=== PATIENT | female | born 1940 | race Caucasian/White ===

== ENCOUNTER 2023-05-15 08:46 | Day surgery (SDC) | payer MEDICARE ==
[~2023-05-15] VITALS: Ht 170.2 cm; Wt 98.6 kg
[~2023-05-15 08:46] MED LIST: OMEP-84 PO
[2023-05-15 09:05] VITALS: BP 139/69; PULSE 85; RESP 14; TEMP 98.2; O2SAT 97
[2023-05-15] MEDS ORDERED: LEVO100T9 PO (09:08)
[2023-05-15] MEDS ORDERED: DAPA10TA PO (09:08)
[2023-05-15] MEDS ORDERED: FURO20TA4 PO (09:08)
[2023-05-15] MEDS ORDERED: LAN0.125T PO (09:08)
[2023-05-15] MEDS ORDERED: FLO0.1T PO (09:08)
[2023-05-15] MEDS ORDERED: LOSA25TA41 PO (09:08)
[2023-05-15] MEDS ORDERED: APIX5TAB3 PO (09:08)
[2023-05-15] MEDS ORDERED: ATOR-2 PO (09:08)
[2023-05-15] MEDS ORDERED: MIDO5TAB4 PO (09:08)
[2023-05-15] MEDS ORDERED: ASPI-611 PO (09:09)
[2023-05-15] MEDS ORDERED: POTA-188 PO (09:09)
[2023-05-15] MEDS ORDERED: albumin 25% 100mL bottle x 1 IV PRN (09:10)
[2023-05-15] MEDS ORDERED: LIDOcaine 1% 30ml preserv. free vial SQ PRN (09:15)
[2023-05-15 09:25] VITALS: BP 150/45; PULSE 99; RESP 14; O2SAT 97
[2023-05-15 09:32] VITALS: BP 150/45; PULSE 99; RESP 14; O2SAT 97
[2023-05-15 09:47] VITALS: BP 111/68; PULSE 80; RESP 15; O2SAT 96
[2023-05-15 10:02] VITALS: BP 99/61; PULSE 80; RESP 15; O2SAT 98
[2023-05-15 10:17] VITALS: BP 102/65; PULSE 79; RESP 15; O2SAT 99
== END 2023-05-15 10:50 | disposition home or self-care (01) ==
LOC: SSTAY O 08:46
PROVIDERS: ATTEND Radiology Diagnostic Radiology
DX: J90 Pleural effusion, not elsewhere classified (principal); I11.0 Hypertensive heart disease with heart failure; I50.9 Heart failure, unspecified; J81.1 Chronic pulmonary edema; E03.9 Hypothyroidism, unspecified; I48.91 Unspecified atrial fibrillation; E11.9 Type 2 diabetes mellitus without complications; E78.5 Hyperlipidemia, unspecified; G47.33 Obstructive sleep apnea (adult) (pediatric); F10.10 Alcohol abuse, uncomplicated; Z96.659 Presence of unspecified artificial knee joint; Z88.2 Allergy status to sulfonamides; Z79.82 Long term (current) use of aspirin; Z79.899 Other long term (current) drug therapy
CPT/HCPCS: 32555; C1729; J3490

== ENCOUNTER 2023-06-18 06:47 | Day surgery (SDC) | payer MEDICARE ==
[~2023-06-18] VITALS: Ht 167.6 cm; Wt 95.3 kg
[~2023-06-18 06:47] MED LIST changes: +APIX5TAB3 PO; +ASPI-611 PO; +ATOR-2 PO; +DAPA10TA PO; +FLO0.1T PO; +FURO20TA4 PO; +LAN0.125T PO; +LEVO100T9 PO; +MIDO5TAB4 PO; +POTA-188 PO
[2023-06-18 07:00] VITALS: BP 151/78; PULSE 105; RESP 16; TEMP 98.1; O2SAT 94
[2023-06-18 07:30] VITALS: RESP 16; O2SAT 94
[2023-06-18] MEDS ORDERED: albumin 25% 100mL bottle x 1 IV PRN (07:30)
[2023-06-18 09:12] VITALS: BP 134/98; PULSE 100; RESP 16; O2SAT 94
[2023-06-18 09:15] VITALS: BP 147/72; PULSE 91; RESP 16; O2SAT 95
[2023-06-18 09:30] VITALS: BP 123/76; PULSE 89; RESP 16; O2SAT 94
[2023-06-18 09:45] VITALS: BP 126/67; PULSE 71; RESP 16; O2SAT 96
== END 2023-06-18 10:00 | disposition home or self-care (01) ==
LOC: SSTAY O 06:47
PROVIDERS: ATTEND Radiology Vascular & Interventional Radiology
DX: J90 Pleural effusion, not elsewhere classified (principal); I11.0 Hypertensive heart disease with heart failure; I50.9 Heart failure, unspecified; J96.91 Respiratory failure, unspecified with hypoxia; E03.9 Hypothyroidism, unspecified; I48.91 Unspecified atrial fibrillation; E11.9 Type 2 diabetes mellitus without complications; E78.5 Hyperlipidemia, unspecified; F10.10 Alcohol abuse, uncomplicated; G47.33 Obstructive sleep apnea (adult) (pediatric); Z96.653 Presence of artificial knee joint, bilateral; Z79.899 Other long term (current) drug therapy; Z79.82 Long term (current) use of aspirin; Z79.01 Long term (current) use of anticoagulants
CPT/HCPCS: 32555; C1729; J3490

== ENCOUNTER 2023-07-26 06:55 | Day surgery (SDC) | payer MEDICARE ==
[~2023-07-26] VITALS: Ht 165.1 cm; Wt 92.7 kg
[2023-07-26] MEDS ORDERED: DEXA0.5T PO (07:18)
[2023-07-26] MEDS ORDERED: SOMA0.2D SQ (07:18)
[2023-07-26 07:30] VITALS: BP 139/86; PULSE 119; RESP 18; TEMP 97.7; O2SAT 93
[2023-07-26] MEDS ORDERED: albumin 25% 100mL bottle x 1 IV PRN (07:30)
[2023-07-26 08:40] VITALS: BP 146/78; PULSE 92; RESP 18
[2023-07-26 09:00] VITALS: BP 133/86; PULSE 91; RESP 18; O2SAT 96
[2023-07-26 09:15] VITALS: BP 139/86; PULSE 77; RESP 18; O2SAT 97
[2023-07-26 09:30] VITALS: BP 144/91; PULSE 86; RESP 18; O2SAT 97
[2023-07-26 09:40] VITALS: BP 146/78; PULSE 92; RESP 18; O2SAT 96
== END 2023-07-26 09:35 | disposition home or self-care (01) ==
LOC: SSTAY O 06:55
PROVIDERS: ATTEND Radiology Vascular & Interventional Radiology
DX: J90 Pleural effusion, not elsewhere classified (principal); I11.0 Hypertensive heart disease with heart failure; I50.9 Heart failure, unspecified; J96.91 Respiratory failure, unspecified with hypoxia; E03.9 Hypothyroidism, unspecified; I48.91 Unspecified atrial fibrillation; E11.9 Type 2 diabetes mellitus without complications; E78.5 Hyperlipidemia, unspecified; F10.20 Alcohol dependence, uncomplicated; J81.1 Chronic pulmonary edema; G47.33 Obstructive sleep apnea (adult) (pediatric); Z96.653 Presence of artificial knee joint, bilateral; Z98.890 Other specified postprocedural states; Z79.82 Long term (current) use of aspirin; Z79.899 Other long term (current) drug therapy
CPT/HCPCS: 32555; C1729; J3490

== ENCOUNTER 2023-08-02 06:54 | Day surgery (SDC) | payer MEDICARE ==
[~2023-08-02] VITALS: Ht 165.1 cm; Wt 91.7 kg
[~2023-08-02 06:54] MED LIST changes: +DEXA0.5T PO; +SOMA0.2D SQ
[2023-08-02] MEDS ORDERED: albumin 25% 100mL bottle x 1 IV PRN (07:10)
[2023-08-02 07:20] VITALS: BP 142/92; PULSE 89; RESP 18; TEMP 98.3; O2SAT 96
[2023-08-02 10:10] VITALS: BP 150/86; PULSE 96; RESP 18; O2SAT 98
[2023-08-02 10:30] VITALS: BP 130/95; PULSE 67; RESP 14; O2SAT 98
[2023-08-02 10:45] VITALS: BP 131/90; PULSE 90; RESP 12; O2SAT 96
[2023-08-02 11:00] VITALS: BP 138/76; PULSE 83; RESP 14; O2SAT 97
[2023-08-02 11:10] VITALS: BP 147/84; PULSE 85; RESP 14; O2SAT 97
== END 2023-08-02 11:10 | disposition home or self-care (01) ==
LOC: SSTAY O 06:54
PROVIDERS: ATTEND Radiology Diagnostic Radiology
DX: J90 Pleural effusion, not elsewhere classified (principal); I11.0 Hypertensive heart disease with heart failure; I50.9 Heart failure, unspecified; J96.91 Respiratory failure, unspecified with hypoxia; J81.1 Chronic pulmonary edema; E03.9 Hypothyroidism, unspecified; I48.91 Unspecified atrial fibrillation; E11.9 Type 2 diabetes mellitus without complications; E78.5 Hyperlipidemia, unspecified; F10.10 Alcohol abuse, uncomplicated; G47.33 Obstructive sleep apnea (adult) (pediatric); Z98.890 Other specified postprocedural states; Z96.653 Presence of artificial knee joint, bilateral; Z88.2 Allergy status to sulfonamides; Z79.899 Other long term (current) drug therapy; Z79.82 Long term (current) use of aspirin; Z79.01 Long term (current) use of anticoagulants
CPT/HCPCS: 32555; C1729; J3490

== ENCOUNTER 2023-08-16 05:52 | Day surgery (SDC) | payer MEDICARE ==
[~2023-08-16] VITALS: Ht 165.1 cm; Wt 92.6 kg
[2023-08-16] VITALS (7 sets, daily range): BP systolic 134–183; BP diastolic 69–98; PULSE 71–85; RESP 18–20; TEMP 99.4; O2SAT 93–99
[2023-08-16] MEDS ORDERED: MIDO10TA PO (06:30)
[2023-08-16] MEDS ORDERED: LEVO88TA7 PO (06:30)
== END 2023-08-16 09:15 | disposition home health service (06) ==
LOC: SSTAY O 05:52
PROVIDERS: ATTEND Radiology Diagnostic Radiology
DX: J90 Pleural effusion, not elsewhere classified (principal); R06.02 Shortness of breath; I11.0 Hypertensive heart disease with heart failure; I50.9 Heart failure, unspecified; E11.9 Type 2 diabetes mellitus without complications; E03.9 Hypothyroidism, unspecified; E78.5 Hyperlipidemia, unspecified; I48.91 Unspecified atrial fibrillation; G47.33 Obstructive sleep apnea (adult) (pediatric); Z79.890 Hormone replacement therapy; Z79.01 Long term (current) use of anticoagulants; Z96.653 Presence of artificial knee joint, bilateral
CPT/HCPCS: 32555; C1729

== ENCOUNTER 2023-08-23 06:57 | Day surgery (SDC) | payer MEDICARE ==
[~2023-08-23] VITALS: Ht 165.1 cm; Wt 91.4 kg
[~2023-08-23 06:57] MED LIST changes: -LEVO100T9 PO; +LEVO88TA7 PO; +MIDO10TA PO; -MIDO5TAB4 PO; -OMEP-84 PO
[2023-08-23 07:26] VITALS: BP 144/66; PULSE 78; RESP 14; TEMP 98.2; O2SAT 97
--- NOTE | 2023-08-23 08:56 | NUR ---
Procedure cancelled due to no fluid
--- NOTE | 2023-08-23 09:05 | NUR ---
dc'd to home via [facility]
== END 2023-08-23 09:00 | disposition home or self-care (01) ==
LOC: SSTAY O 06:57
PROVIDERS: ATTEND Radiology Vascular & Interventional Radiology
DX: J90 Pleural effusion, not elsewhere classified (principal); Z53.8 Procedure and treatment not carried out for other reasons; I11.0 Hypertensive heart disease with heart failure; I50.9 Heart failure, unspecified; J96.91 Respiratory failure, unspecified with hypoxia; J81.1 Chronic pulmonary edema; E03.9 Hypothyroidism, unspecified; I48.91 Unspecified atrial fibrillation; E11.9 Type 2 diabetes mellitus without complications; E78.5 Hyperlipidemia, unspecified; F10.10 Alcohol abuse, uncomplicated; Z96.653 Presence of artificial knee joint, bilateral; Z98.890 Other specified postprocedural states
CPT/HCPCS: 76604

== ENCOUNTER 2023-08-30 06:57 | Day surgery (SDC) | payer MEDICARE ==
[~2023-08-30] VITALS: Ht 165.1 cm; Wt 91.6 kg
[2023-08-30 07:16] VITALS: BP 133/94; PULSE 80; RESP 16; TEMP 98.6; O2SAT 96
[2023-08-30] MEDS ORDERED: albumin 25% 100mL bottle x 1 IV PRN (07:35)
[2023-08-30 09:25] VITALS: BP 139/84; PULSE 89; RESP 16; O2SAT 96
[2023-08-30 09:30] VITALS: BP 128/78; PULSE 72; RESP 16; O2SAT 94
[2023-08-30 09:45] VITALS: BP 122/78; PULSE 106; RESP 14; O2SAT 94
[2023-08-30 10:00] VITALS: BP 132/69; PULSE 106; RESP 12; O2SAT 96
[2023-08-30 10:15] VITALS: BP 143/75; PULSE 75; RESP 16; O2SAT 95
== END 2023-08-30 10:30 | disposition home or self-care (01) ==
LOC: SSTAY O 06:57
PROVIDERS: ATTEND Radiology Vascular & Interventional Radiology
DX: J90 Pleural effusion, not elsewhere classified (principal); I11.0 Hypertensive heart disease with heart failure; I50.9 Heart failure, unspecified; J96.91 Respiratory failure, unspecified with hypoxia; J81.1 Chronic pulmonary edema; E03.9 Hypothyroidism, unspecified; I48.91 Unspecified atrial fibrillation; E11.9 Type 2 diabetes mellitus without complications; E78.5 Hyperlipidemia, unspecified; F10.10 Alcohol abuse, uncomplicated; G47.33 Obstructive sleep apnea (adult) (pediatric); Z96.659 Presence of unspecified artificial knee joint; Z88.2 Allergy status to sulfonamides; Z79.899 Other long term (current) drug therapy; Z79.82 Long term (current) use of aspirin; Z79.01 Long term (current) use of anticoagulants
CPT/HCPCS: 32555; C1729

== ENCOUNTER 2023-09-06 07:04 | Day surgery (SDC) | payer MEDICARE ==
[~2023-09-06] VITALS: Ht 165.1 cm; Wt 91.9 kg
[2023-09-06 07:30] VITALS: BP 159/99; PULSE 86; RESP 16; RESP 20; TEMP 97.8; O2SAT 94
[2023-09-06] MEDS ORDERED: albumin 25% 100mL bottle x 1 IV PRN (07:30)
[2023-09-06 09:05] VITALS: BP 119/53; PULSE 86; RESP 20; O2SAT 97
[2023-09-06 09:10] VITALS: BP 119/53; PULSE 86; RESP 20; O2SAT 97
[2023-09-06 09:15] VITALS: BP 148/86; PULSE 91; RESP 18; O2SAT 95
[2023-09-06 09:25] VITALS: BP 148/78; PULSE 89; RESP 18; O2SAT 97
== END 2023-09-06 09:09 | disposition home or self-care (01) ==
LOC: SSTAY O 07:04
PROVIDERS: ATTEND Radiology Diagnostic Radiology
DX: J90 Pleural effusion, not elsewhere classified (principal); I11.0 Hypertensive heart disease with heart failure; I50.9 Heart failure, unspecified; J96.91 Respiratory failure, unspecified with hypoxia; J81.1 Chronic pulmonary edema; E03.9 Hypothyroidism, unspecified; I48.91 Unspecified atrial fibrillation; E11.9 Type 2 diabetes mellitus without complications; E78.5 Hyperlipidemia, unspecified; F10.10 Alcohol abuse, uncomplicated; G47.33 Obstructive sleep apnea (adult) (pediatric); Z96.653 Presence of artificial knee joint, bilateral; Z79.899 Other long term (current) drug therapy
CPT/HCPCS: 32555; C1729

== ENCOUNTER 2023-09-18 06:30 | Day surgery (SDC) | payer MEDICARE ==
[~2023-09-18] VITALS: Ht 165.1 cm; Wt 92.4 kg
[2023-09-18 06:50] VITALS: BP 133/108; PULSE 87; RESP 20; TEMP 97.7; O2SAT 94; O2SAT 98
[2023-09-18] MEDS ORDERED: albumin 25% 100mL bottle x 1 IV PRN (06:50)
[2023-09-18 08:45] VITALS: BP 177/107; PULSE 85; RESP 20; O2SAT 96
[2023-09-18 08:54] VITALS: BP 199/90; PULSE 87; RESP 20; O2SAT 96
[2023-09-18 09:00] VITALS: BP 161/92; PULSE 79; RESP 18; O2SAT 98
[2023-09-18 09:15] VITALS: BP 157/92; PULSE 66; RESP 18; O2SAT 97
== END 2023-09-18 09:27 | disposition home or self-care (01) ==
LOC: SSTAY O 06:30
PROVIDERS: ATTEND Radiology Vascular & Interventional Radiology
DX: J90 Pleural effusion, not elsewhere classified (principal); I11.0 Hypertensive heart disease with heart failure; I50.9 Heart failure, unspecified; E11.9 Type 2 diabetes mellitus without complications; J96.91 Respiratory failure, unspecified with hypoxia; J81.1 Chronic pulmonary edema; E03.9 Hypothyroidism, unspecified; I48.91 Unspecified atrial fibrillation; E78.5 Hyperlipidemia, unspecified; F10.10 Alcohol abuse, uncomplicated; G47.33 Obstructive sleep apnea (adult) (pediatric); Z98.890 Other specified postprocedural states; Z88.2 Allergy status to sulfonamides; Z96.653 Presence of artificial knee joint, bilateral; Z79.899 Other long term (current) drug therapy
CPT/HCPCS: 32555; C1729

== ENCOUNTER 2023-09-28 06:23 | Day surgery (SDC) | payer MEDICARE ==
[~2023-09-28] VITALS: Ht 160 cm; Wt 91.4 kg
[2023-09-28 07:01] VITALS: BP 152/92; PULSE 74; RESP 16; TEMP 98.3; O2SAT 94
[2023-09-28 07:30] VITALS: RESP 16; O2SAT 95
[2023-09-28 08:46] VITALS: BP 156/125; PULSE 95; RESP 16; O2SAT 95
[2023-09-28 09:00] VITALS: BP 162/100; PULSE 93; RESP 16; O2SAT 95
[2023-09-28 09:15] VITALS: BP 153/97; PULSE 84; RESP 16; O2SAT 93
[2023-09-28 09:30] VITALS: BP 157/95; PULSE 83; RESP 16; O2SAT 95
== END 2023-09-28 09:40 | disposition home or self-care (01) ==
LOC: SSTAY O 06:23
PROVIDERS: ATTEND Radiology Vascular & Interventional Radiology
DX: J90 Pleural effusion, not elsewhere classified (principal); I11.0 Hypertensive heart disease with heart failure; I50.9 Heart failure, unspecified; E11.9 Type 2 diabetes mellitus without complications; E03.9 Hypothyroidism, unspecified; E78.5 Hyperlipidemia, unspecified; I48.91 Unspecified atrial fibrillation; G47.33 Obstructive sleep apnea (adult) (pediatric); Z79.01 Long term (current) use of anticoagulants; Z79.82 Long term (current) use of aspirin; Z79.890 Hormone replacement therapy; Z79.899 Other long term (current) drug therapy; Z96.653 Presence of artificial knee joint, bilateral; Z88.2 Allergy status to sulfonamides
CPT/HCPCS: 32555; C1729

== ENCOUNTER 2023-10-09 06:54 | Day surgery (SDC) | payer MEDICARE ==
[2023-10-09] VITALS (7 sets, daily range): BP systolic 129–155; BP diastolic 80–101; PULSE 70–98; RESP 15–16; TEMP 98.2; O2SAT 96–97
[~2023-10-09] VITALS: Ht 165.1 cm; Wt 92.3 kg
== END 2023-10-09 10:38 | disposition home or self-care (01) ==
LOC: SSTAY O 06:54
PROVIDERS: ATTEND Radiology Vascular & Interventional Radiology
DX: J90 Pleural effusion, not elsewhere classified (principal); I11.0 Hypertensive heart disease with heart failure; I50.9 Heart failure, unspecified; J96.91 Respiratory failure, unspecified with hypoxia; J81.1 Chronic pulmonary edema; E03.9 Hypothyroidism, unspecified; I48.91 Unspecified atrial fibrillation; E11.9 Type 2 diabetes mellitus without complications; E78.5 Hyperlipidemia, unspecified; F10.10 Alcohol abuse, uncomplicated; G47.33 Obstructive sleep apnea (adult) (pediatric); Z98.890 Other specified postprocedural states; Z96.653 Presence of artificial knee joint, bilateral; Z79.899 Other long term (current) drug therapy; Z88.2 Allergy status to sulfonamides
CPT/HCPCS: 32555; C1729

== ENCOUNTER 2023-10-18 06:52 | Day surgery (SDC) | payer MEDICARE ==
[~2023-10-18] VITALS: Ht 165.1 cm; Wt 91.4 kg
[2023-10-18] VITALS (7 sets, daily range): BP systolic 132–156; BP diastolic 77–100; PULSE 68–88; RESP 16; TEMP 97.9; O2SAT 86–98
== END 2023-10-18 09:57 | disposition home or self-care (01) ==
LOC: SSTAY O 06:52
PROVIDERS: ATTEND Radiology Vascular & Interventional Radiology
DX: J90 Pleural effusion, not elsewhere classified (principal); E11.9 Type 2 diabetes mellitus without complications; I11.0 Hypertensive heart disease with heart failure; I50.9 Heart failure, unspecified; J96.91 Respiratory failure, unspecified with hypoxia; J81.1 Chronic pulmonary edema; E03.9 Hypothyroidism, unspecified; I48.91 Unspecified atrial fibrillation; E78.5 Hyperlipidemia, unspecified; F10.10 Alcohol abuse, uncomplicated; G47.33 Obstructive sleep apnea (adult) (pediatric); Z79.899 Other long term (current) drug therapy; Z98.890 Other specified postprocedural states; Z96.653 Presence of artificial knee joint, bilateral
CPT/HCPCS: 32555; C1729

== ENCOUNTER 2023-11-08 06:34 | Day surgery (SDC) | payer MEDICARE ==
[~2023-11-08] VITALS: Ht 165.1 cm; Wt 92.3 kg
[2023-11-08] MEDS ORDERED: albumin 25% 100mL bottle x 1 IV PRN (06:55)
[2023-11-08 07:01] VITALS: BP 138/89; PULSE 71; RESP 15; TEMP 98.1; O2SAT 95
[2023-11-08 07:15] VITALS: BP 138/89; PULSE 71; RESP 16; TEMP 98.1; O2SAT 95
[2023-11-08 08:29] VITALS: BP 154/41; PULSE 68; RESP 15; O2SAT 97
[2023-11-08 08:45] VITALS: BP 150/97; PULSE 89; RESP 15; O2SAT 98
[2023-11-08 09:00] VITALS: BP 158/76; PULSE 70; RESP 14; RESP 15; O2SAT 97; O2SAT 98
[2023-11-08 09:15] VITALS: BP 159/80; PULSE 72; RESP 15; O2SAT 98
== END 2023-11-08 09:25 | disposition home or self-care (01) ==
LOC: SSTAY O 06:34
PROVIDERS: ATTEND Radiology Vascular & Interventional Radiology
DX: J90 Pleural effusion, not elsewhere classified (principal); I11.0 Hypertensive heart disease with heart failure; I50.9 Heart failure, unspecified; E11.9 Type 2 diabetes mellitus without complications; E03.9 Hypothyroidism, unspecified; E78.5 Hyperlipidemia, unspecified; I48.91 Unspecified atrial fibrillation; G47.33 Obstructive sleep apnea (adult) (pediatric); J96.91 Respiratory failure, unspecified with hypoxia; J81.1 Chronic pulmonary edema; F10.10 Alcohol abuse, uncomplicated; Z79.01 Long term (current) use of anticoagulants; Z79.890 Hormone replacement therapy; Z79.899 Other long term (current) drug therapy; Z96.653 Presence of artificial knee joint, bilateral
CPT/HCPCS: 32555; C1729

== ENCOUNTER 2023-11-30 06:42 | Day surgery (SDC) | payer MEDICARE ==
[~2023-11-30] VITALS: Ht 167.6 cm; Wt 91.3 kg
[2023-11-30] VITALS (13 sets, daily range): BP systolic 148–174; BP diastolic 72–105; PULSE 65–102; RESP 14–18; TEMP 98.1; O2SAT 92–99
[2023-11-30] MEDS ORDERED: albumin 25% 100mL bottle x 1 IV PRN (07:30)
== END 2023-11-30 09:41 | disposition home or self-care (01) ==
LOC: SSTAY O 06:42
PROVIDERS: ATTEND Radiology Diagnostic Radiology
DX: J90 Pleural effusion, not elsewhere classified (principal); I50.9 Heart failure, unspecified; J81.1 Chronic pulmonary edema; J96.91 Respiratory failure, unspecified with hypoxia; E03.9 Hypothyroidism, unspecified; I48.91 Unspecified atrial fibrillation; E11.9 Type 2 diabetes mellitus without complications; E78.5 Hyperlipidemia, unspecified; G47.33 Obstructive sleep apnea (adult) (pediatric); I10 Essential (primary) hypertension; F10.10 Alcohol abuse, uncomplicated; Z98.890 Other specified postprocedural states; Z96.653 Presence of artificial knee joint, bilateral; Z79.899 Other long term (current) drug therapy
CPT/HCPCS: 32555; C1729

== ENCOUNTER 2023-12-11 06:37 | Day surgery (SDC) | payer MEDICARE ==
[~2023-12-11] VITALS: Ht 165.1 cm; Wt 91.2 kg
[2023-12-11] MEDS ORDERED: albumin 25% 100mL bottle x 1 IV PRN (07:00)
[2023-12-11 07:10] VITALS: BP 158/92; PULSE 87; RESP 16; TEMP 97.7; O2SAT 96
[2023-12-11 09:02] VITALS: BP 162/72; PULSE 68; RESP 16; O2SAT 96
[2023-12-11 09:15] VITALS: BP 159/80; PULSE 78; RESP 16; O2SAT 97
[2023-12-11 09:30] VITALS: BP 150/88; PULSE 78; RESP 16; O2SAT 98
[2023-12-11 09:37] VITALS: BP 137/97; PULSE 76; RESP 16; O2SAT 97
== END 2023-12-11 09:45 | disposition home or self-care (01) ==
LOC: SSTAY O 06:37
PROVIDERS: ATTEND Radiology Vascular & Interventional Radiology
DX: J90 Pleural effusion, not elsewhere classified (principal); I11.0 Hypertensive heart disease with heart failure; I50.9 Heart failure, unspecified; J81.1 Chronic pulmonary edema; E03.9 Hypothyroidism, unspecified; I48.91 Unspecified atrial fibrillation; E11.9 Type 2 diabetes mellitus without complications; F10.10 Alcohol abuse, uncomplicated; E78.5 Hyperlipidemia, unspecified; G47.33 Obstructive sleep apnea (adult) (pediatric); J96.91 Respiratory failure, unspecified with hypoxia; Z96.653 Presence of artificial knee joint, bilateral; Z98.890 Other specified postprocedural states; Z88.2 Allergy status to sulfonamides; Z79.82 Long term (current) use of aspirin; Z79.899 Other long term (current) drug therapy; Z79.01 Long term (current) use of anticoagulants
CPT/HCPCS: 32555; C1729